=== PATIENT | female | born 1960 | race Caucasian/White ===

== ENCOUNTER 2017-04-20 21:28 | Emergency (ER) | payer OTHER, BC ==
[~2017-04-20] VITALS: Ht 158.8 cm; Wt 59.1 kg
[~2017-04-20 21:28] MED LIST: ASPEC81 PO; ATOR-24 PO; CLOP1TAB5 PO; DIPH25CA65 PO; PARO10TA PO
[2017-04-20 21:40] VITALS: TEMP 36.8; Ht 158.8 cm; Wt 59.1 kg
[2017-04-20] MEDS ORDERED: ASPI81TA28 PO (21:56)
[2017-04-20] MEDS ORDERED: ACET-1256 PO (21:56)
[2017-04-20] MEDS ORDERED: LORAZEPAM 2 MG/ML 1 ML VIAL IV STA (22:01)
[2017-04-20] MEDS ORDERED: OPTIRAY 320 IV PRN (22:15)
[2017-04-20 22:44] LABS: BASO % 0.4 %; BASO ABS # 0.02 K/uL (0-0.2); EOS % 0.9 %; EOS ABS # 0.05 K/uL (0-0.5); HEMOGLOBIN 13.1 g/dL (12.0-16.0); IG# 0.01 K/uL (0.00-0.02); LYMPH % 26.5 %; MEAN CELL VOLUME 89.2 fL (80-100); MEAN CORPUSCULAR HGB CONC 33.6 g/dl (32-36); MEAN PLATELET VOLUME 9.6 fL (7.4-10.4); MONO % 7.4 %; MONO ABS # 0.39 K/uL (0.11-0.59); NEUT % 64.6 %; NEUT ABS # 3.42 K/uL (1.4-6.5); PLATELET COUNT 275 K/uL (130-400); RED CELL DISTRIBUTION WIDTH CV 12.9 % (11.5-14.5); RED CELL DISTRIBUTION WIDTH SD 42.1 fL (36.4-46.3); WHITE BLOOD COUNT 5.29 K/uL (4.8-10.8)
[2017-04-20 23:04] LABS: ALBUMIN 4.2 gm/dl (3.4-5.0); CALCIUM 9.5 mg/dl (8.5-10.1); CREATININE 0.87 mg/dl (0.60-1.20); POTASSIUM 3.9 mmol/L (3.5-5.1)
[2017-04-20 23:06] LABS: TOTAL PROTEIN 7.7 gm/dl (6.4-8.2)
[2017-04-21] MEDS ORDERED: ATIVAN 1MG HOMEPACK PO ONE (01:15)
[2017-04-21 01:23] VITALS: BP 109/56; PULSE 97; O2SAT 98
--- NOTE | 2017-04-21 06:44 | DIAGNOSTIC IMAGING REPORT ---
CT OF THE CERVICAL SPINE CLINICAL HISTORY: Left side neck pain after chiropractor adjustment. COMPARISON STUDY: Cervical spine MRI November 15, 2015. TECHNIQUE: Helical axial images of the cervical spine were obtained. Sagittal and coronal reconstructions were viewed. A dose lowering technique was utilized adhering to the principles of ALARA. FINDINGS: The patient is status post C5-C6 fusion. No acute cervical spine fracture is identified. The CTA of the neck will be reported separately. The craniocervical junction is intact. There is moderate multilevel disc space narrowing with osteophytosis and mild multilevel facet arthrosis. Multiple tonsilliths are noted. In addition, there is a 1.2 cm cystic lesion within the right palatine tonsils which is similar to MRI of November 15, 2015. This likely has minimal peripheral enhancement. IMPRESSION: 1. No acute cervical spine fracture. 2. No change in an indeterminate 1.2 cm cystic lesion within the right palatine tonsils since MRI of November 15, 2015. Electronically signed by: Alphonse Valle M.D. 04/21/2017 6:43 AM Dictated Date/Time: 04/21/2017 6:37 AM
--- NOTE | 2017-04-21 06:48 | DIAGNOSTIC IMAGING REPORT ---
CT ANGIOGRAPHY OF THE NECK WITH CONTRAST CLINICAL HISTORY: LEFT NECK PAIN AFTER CHIROPRACTOR COMPARISON STUDY: Carotid ultrasound November 14, 2015. Technique: CT angiography of the carotid and vertebral arteries was obtained using BioDtech 320 IV and 3D reconstruction on an independent workstation. NASCET criteria was utilized. A dose lowering technique was utilized adhering to the principles of ALARA. CT DOSE: 416.72 mGy.cm Findings: No dissection is identified within the bilateral common carotid, internal carotid and vertebral arteries. These vessels are patent. The left vertebral artery is dominant. No significant stenosis is present. Lung apices are clear. A 1.2 cm peripherally enhancing cystic lesion within the right palatine tonsils is similar to MRI of November 15, 2015. There is no cervical lymphadenopathy. Postoperative findings within the sinuses are noted. There is no acute cervical spine fracture. IMPRESSION: No dissection or stenosis within the major vasculature of the neck. Electronically signed by: Alphonse Valle M.D. 04/21/2017 6:47 AM Dictated Date/Time: 04/21/2017 6:37 AM
--- NOTE | 2017-04-21 15:51 | EMERGENCY ROOM VISIT NOTE ---
History First contact with patient: 21:49 Chief Complaint: NECK PAIN Stated Complaint: SEVERE NECK PAIN History of Present Illness The patient is a 56 year old female who presents to the Emergency Room with complaints of severe left sided neck pain that is worsening over the past one day. The patient states that she has had some low back pain for the past several days, and went to a chiropractor. She states that she had her low back adjusted, as well as her neck. After going home she had severe worsening of her neck pain, again primarily on the left side. The patient is very anxious about her neck as she had a C5-C6 fusion about 20 years ago. She typically does not need medication for pain, but has been taking Tylenol without significant relief of symptoms. She does not have numbness down her left side. No distinct trauma. She is not describing lightheadedness, dizziness, vision changes, or other neurologic symptoms. She rates her current discomfort an 8/ 10. Review of Systems More than 10 systems were reviewed and otherwise negative with the exception of history of present illness. Past Medical/Surgical History Medical Problems: (1) No Known Active Medical Problems Surgical Problems: (1) History of back surgery Family History No pertinent family history Social History Smoking Status: Never Smoker Marital Status: Housing Status: lives with significant other Current/Historical Medications Scheduled Aspirin (Aspirin Ec), 81 MG PO DAILY Paroxetine Hcl (Paxil), 5 MG PO DAILY Scheduled PRN Acetaminophen (Tylenol), 1,000 MG PO Q6 PRN for Pain Physical Exam Vital Signs Date Time Temp Pulse Resp B/P (MAP) Pulse Ox O2 Delivery O2 Flow Rate FiO2 04/21/17 01:23 97 16 109/56 98 04/20/17 23:36 102 16 133/59 98 Room Air 04/20/17 21:40 36.8 108 18 158/82 100 Room Air Physical Exam VITALS: Vitals are noted on the nurse's note and reviewed by myself. Vital signs stable. GENERAL: Well-developed, well-nourished, white female who appears significantly anxious. She is crying at times throughout the interview. Patient is cooperative with the examination. HEAD: Normocephalic atraumatic. NECK: Supple without nuchal rigidity. No lymphadenopathy. No thyromegaly. Cervical spine is nontender. No meningeal this. HEART: Regular rate and rhythm without murmurs gallops or rubs. LUNGS: Clear to auscultation bilaterally without wheezes, rales or rhonchi. No retractions or accessory muscle use. MUSCULOSKELETAL: No muscle atrophy, erythema, or edema noted. Full range of motion without joint tenderness in all extremities. NEURO: Patient was alert and oriented to person place and time. CN II through XII grossly intact. No focal neurological deficits. Deep tendon reflexes 2+ throughout. Medical Decision & Procedures ER Provider Diagnostic Interpretation: CT OF THE CERVICAL SPINE CLINICAL HISTORY: Left side neck pain after chiropractor adjustment. COMPARISON STUDY: Cervical spine MRI November 15, 2015. TECHNIQUE: Helical axial images of the cervical spine were obtained. Sagittal and coronal reconstructions were viewed. A dose lowering technique was utilized adhering to the principles of ALARA. FINDINGS: The patient is status post C5-C6 fusion. No acute cervical spine fracture is identified. The CTA of the neck will be reported separately. The craniocervical junction is intact. There is moderate multilevel disc space narrowing with osteophytosis and mild multilevel facet arthrosis. Multiple tonsilliths are noted. In addition, there is a 1.2 cm cystic lesion within the right palatine tonsils which is similar to MRI of November 15, 2015. This likely has minimal peripheral enhancement. IMPRESSION: 1. No acute cervical spine fracture. 2. No change in an indeterminate 1.2 cm cystic lesion within the right palatine tonsils since MRI of November 15, 2015. CT ANGIOGRAPHY OF THE NECK WITH CONTRAST CLINICAL HISTORY: LEFT NECK PAIN AFTER CHIROPRACTOR COMPARISON STUDY: Carotid ultrasound November 14, 2015. Technique: CT angiography of the carotid and vertebral arteries was obtained using Optiray 320 IV and 3D reconstruction on an independent workstation. NASCET criteria was utilized. A dose lowering technique was utilized adhering to the principles of ALARA. CT DOSE: 416.72 mGy.cm Findings: No dissection is identified within the bilateral common carotid, internal carotid and vertebral arteries. These vessels are patent. The left vertebral artery is dominant. No significant stenosis is present. Lung apices are clear. A 1.2 cm peripherally enhancing cystic lesion within the right palatine tonsils is similar to MRI of November 15, 2015. There is no cervical lymphadenopathy. Postoperative findings within the sinuses are noted. There is no acute cervical spine fracture. IMPRESSION: No dissection or stenosis within the major vasculature of the neck. Laboratory Results 04/20/17 22:23 Red Blood Count 4.37, Mean Corpuscular Volume 89.2, Mean Corpuscular Hemoglobin 30.0, Mean Corpuscular Hemoglobin Concent 33.6, Mean Platelet Volume 9.6, Neutrophils (%) (Auto) 64.6, Lymphocytes (%) (Auto) 26.5, Monocytes (%) (Auto) 7.4, Eosinophils (%) (Auto) 0.9, Basophils (%) (Auto) 0.4, Neutrophils # (Auto) 3.42, Lymphocytes # (Auto) 1.40, Monocytes # (Auto) 0.39, Eosinophils # (Auto) 0.05, Basophils # (Auto) 0.02 04/20/17 22:23 Test 04/20/17 22:23 White Blood Count 5.29 K/uL (4.8-10.8) Red Blood Count 4.37 M/uL (4.2-5.4) Hemoglobin 13.1 g/dL (12.0-16.0) Hematocrit 39.0 % (37-47) Mean Corpuscular Volume 89.2 fL (80-100) Mean Corpuscular Hemoglobin 30.0 pg (25-34) Mean Corpuscular Hemoglobin Concent 33.6 g/dl (32-36) Platelet Count 275 K/uL (130-400) Mean Platelet Volume 9.6 fL (7.4-10.4) Neutrophils (%) (Auto) 64.6 % Lymphocytes (%) (Auto) 26.5 % Monocytes (%) (Auto) 7.4 % Eosinophils (%) (Auto) 0.9 % Basophils (%) (Auto) 0.4 % Neutrophils # (Auto) 3.42 K/uL (1.4-6.5) Lymphocytes # (Auto) 1.40 K/uL (1.2-3.4) Monocytes # (Auto) 0.39 K/uL (0.11-0.59) Eosinophils # (Auto) 0.05 K/uL (0-0.5) Basophils # (Auto) 0.02 K/uL (0-0.2) RDW Standard Deviation 42.1 fL (36.4-46.3) RDW Coefficient of Variation 12.9 % (11.5-14.5) Immature Granulocyte % (Auto) 0.2 % Immature Granulocyte # (Auto) 0.01 K/uL (0.00-0.02) Anion Gap 5.0 mmol/L (3-11) Est Creatinine Clear Calc Drug Dose 58.5 ml/min Estimated GFR () 86.3 Estimated GFR (Non- 74.5 BUN/Creatinine Ratio 24.7 (10-20) Calcium Level 9.5 mg/dl (8.5-10.1) Total Bilirubin 0.2 mg/dl (0.2-1) Aspartate Amino Transf (AST/SGOT) 13 U/L (15-37) Alanine Aminotransferase (ALT/SGPT) 21 U/L (12-78) Alkaline Phosphatase 60 U/L (45-117) Total Protein 7.7 gm/dl (6.4-8.2) Albumin 4.2 gm/dl (3.4-5.0) Globulin 3.5 gm/dl (2.5-4.0) Albumin/Globulin Ratio 1.2 (0.9-2) Medications Administered Medications (Trade) Dose Ordered Sig/Carmina Route Start Time Stop Time Status Last Admin Dose Admin Lorazepam (Ativan Inj) 1 mg NOW STAT IV 04/20/17 22:01 04/20/17 22:04 DC 04/20/17 22:19 1 MG Lorazepam (Ativan 1MG Home Pack) 1 homepack UD ONCE PO 04/21/17 01:15 04/21/17 01:16 DC 04/21/17 01:15 1 HOMEPACK ED Course Physical exam and history were performed. Nursing notes, EMR, and Medication List were personally reviewed. Patient appears to have severe left-sided neck pain after going to the chiropractor this week. The patient is very anxious on examination. IV access was established and basic labs were obtained. The patient was given a dose of IV Ativan. She did not wish for pain medication at this time, although this was offered. The patient's blood work is as above and was reviewed. She does not have a significantly elevated white blood cell count, gross anemia, bandemia, or significant electrolyte imbalance. CT scan of the neck is without fracture. CT angiogram does not reveal dissection or other acute etiology for her symptoms. It does show an atypical finding in her tonsil, and a patient reports a past medical history of a mucoid cyst that is followed by ENT. This is evidently not new for her. Overall the patient appears well for discharge home. She had significant improvement of her symptoms after the Ativan and reassurance following CT scans. The patient will be given a home pack of Ativan and instructed to follow with her primary care physician in the next few days for recheck. She was otherwise invited back to the ER with any new, worsening, or concerning symptoms. The chart was completed utilizing [employer] Speech Voice Recognition Software. Grammatical errors, random word insertions, pronoun errors, and incomplete sentences are an occasional consequence of this system due to software limitations, ambient noise, and hardware issues. Any formal questions or concerns about the content, text, or information contained within the body of this dictation should be directly addressed to the provider for clarification. . Medical Decision The differential diagnosis includes, but is not limited to: Musculoskeletal pain , chronic neck pain, vertebral artery dissection, hardware malfunction, encephalitis, mass or mass effect, sinusitis, infection, tumor, and others Impression Primary Impression: Neck pain on left side Additional Impression: Mucous cyst of tonsil Departure Information Dispostion Home / Self-Care Condition GOOD Referrals Glo Drummond M.D. Forms HOME CARE DOCUMENTATION FORM, IMPORTANT VISIT INFORMATION Patient Instructions My [facility] Additional Instructions You were seen and evaluated today on an emergency basis only. This is not a substitute for, or an effort to provide, complete comprehensive medical care. It is not possible to recognize and treat all injuries or illnesses in a single emergency department visit. For this reason it is recommended that you followup with your primary care physician with any ongoing or persistent symptoms. You may take Ativan 1 mg 8 hours as needed Continue at home medications Follow with Dr. Drummond, GLORIA, for your tonsil You are welcome to return to the emergency department anytime with new, worsening, or concerning symptoms. Problem Qualifiers
== END 2017-04-21 01:25 | disposition home or self-care (01) ==
LOC: C.EDB 21:29 → C.EDD 04-21 01:25
DX: M54.2 Cervicalgia (principal); J35.8 Other chronic diseases of tonsils and adenoids; Z79.82 Long term (current) use of aspirin; Z79.899 Other long term (current) drug therapy

== ENCOUNTER 2017-05-25 05:31 | Day surgery (SDC) | payer OTHER, BC ==
[2017-05-21 08:08] VITALS: BMI 22.0
--- NOTE | 2017-05-21 08:43 | PAT Medication Instructions ---
Service Date May 21, 2017. Current Home Medication List Acetaminophen (Tylenol), 1,000 MG PO Q6 PRN for Pain Aspirin (Aspirin Ec), 81 MG PO QAM Diphenhydramine Hcl (Benadryl Allergy), 1 CAP PO HS Lorazepam (Ativan), Unknown Dose PO UD PRN for prn Mupirocin Calcium (Topical) (Mupirocin), 1 DOSE TOP UD Paroxetine Hcl (Paxil), 10 MG PO HS Medication Instructions For Your Scheduled Surgery -Contact your surgeon for instructions for: Aspirin (Aspirin Ec), 81 MG PO QAM - Hold the following medications 24 hours prior to surgery: Mupirocin Calcium (Topical) (Mupirocin), 1 DOSE TOP UD - Take the following medications the morning of surgery with a sip of water: Acetaminophen (Tylenol), 1,000 MG PO Q6 PRN for Pain (if needed, can be taken up to four hours before surgery) Lorazepam (Ativan), Unknown Dose PO UD PRN for prn (if needed) - Take the following medications as scheduled the night before surgery: Acetaminophen (Tylenol), 1,000 MG PO Q6 PRN for Pain (if needed) Diphenhydramine Hcl (Benadryl Allergy), 1 CAP PO HS Lorazepam (Ativan), Unknown Dose PO UD PRN for prn (if needed) Paroxetine Hcl (Paxil), 10 MG PO HS If you have any questions please call us at [phone] or [phone] or [phone]
--- NOTE | 2017-05-24 16:50 | History and Physical ---
History & Physical Date May 24, 2017. Chief Complaint cyst above right tonsil History of Present Illness The patient is a 56 year old female with complaints of chronic tonsillitis, cyst noted on CT of spine above right tonsil Past Medical/Surgical History Medical Problems: (1) No Known Active Medical Problems Surgical Problems: (1) History of back surgery Additional History Hepatic Disease: No Endocrine Disorder: No Kidney Disease: No Hypertension: No Heart Disease: No Bleeding Tendencies: No Infectious Diseases: No Allergies Coded Allergies: Sulfa Antibiotics (Verified Allergy, Severe, CHAVES, BLISTERS ON SKIN, 05/21/17 ) Sertraline (Verified Allergy, Mild, Rash, 05/21/17) Home Medications Scheduled Aspirin (Aspirin Ec), 81 MG PO QAM Diphenhydramine Hcl (Benadryl Allergy), 1 CAP PO HS Mupirocin Calcium (Topical) (Mupirocin), 1 DOSE TOP UD Paroxetine Hcl (Paxil), 10 MG PO HS Scheduled PRN Acetaminophen (Tylenol), 1,000 MG PO Q6 PRN for Pain Lorazepam (Ativan), Unknown Dose PO UD PRN for prn Physical Examination Skin: warm/dry, no rash Eyes: normal inspection, EOMI, sclerae normal ENT: normal ENT inspection, pharynx normal Head: normocephalic, atraumatic Neck: supple, no adenopathy, trachea midline Respiratory/Chest: lungs clear, normal breath sounds, no respiratory distress Cardiovascular: regular rate, rhythm, no edema, no murmur Abdomen / GI: normal bowel sounds, non tender Back: normal inspection Extremities: normal inspection, normal range of motion Neurologic/Psych: no motor/sensory deficits, alert, normal reflexes, oriented x 3 Diagnosis chronic tonsillitis, cyst above right tonsil Plan of Treatment tonsillectomy, excision pharyngeal cyst
[~2017-05-25] VITALS: Ht 160 cm; Wt 57.3 kg
[~2017-05-25 05:31] MED LIST changes: +ACET-1256 PO; -ASPEC81 PO; +ASPI81TA28 PO; -ATOR-24 PO; -CLOP1TAB5 PO; +LORA-741 PO; +MUPI1CRE TOP
[2017-05-25 05:50] VITALS: BP 151/72; PULSE 106; TEMP 36.7; O2SAT 97; Ht 160 cm; Wt 57.3 kg
[2017-05-25] MEDS ORDERED: CEFAZOLIN SOD 1000MG/7.5 ML IV PUSH IV SCH (06:00)
[2017-05-25] MEDS ORDERED: LACTATED RINGER'S 1000ML 1,000 ML IV SCH (06:00)
[2017-05-25] MEDS ORDERED: FENTANYL CITRATE INJ 50 MCG/1 ML 2 ML VIAL ONE ×2 (06:54→08:45)
[2017-05-25] MEDS ORDERED: PROPOFOL IV EMULSION 10 MG/ML 20 ML VIAL IV ONE (06:54)
[2017-05-25] MEDS ORDERED: LIDOCAINE HCL 2% 2 ML VIAL (20MG/ML) ONE (06:54)
[2017-05-25] MEDS ORDERED: NEOSTIGMINE METHYLSULFATE 5 MG/5 ML SYR ONE (06:54)
[2017-05-25] MEDS ORDERED: ONDANSETRON INJ 2 MG/ML 2 ML VIAL ONE ×2 (06:54→07:42)
[2017-05-25] MEDS ORDERED: GLYCOPYRROLATE INJ 0.2 MG/ML VIAL ONE ×2 (06:54→07:42)
[2017-05-25] MEDS ORDERED: DEXAMETHASONE SOD INJ 4 MG/ML VIAL ONE (06:54)
[2017-05-25] MEDS ORDERED: MIDAZOLAM HCL 1 MG/ML 2ML VIAL ONE (06:54)
[2017-05-25] MEDS ORDERED: BUPIVACAINE/EPINEPHRINE 0.5% MPF 1:200,000 30 ML VIAL ONE (07:15)
--- NOTE | 2017-05-25 07:16 | History & Physical Bridge Note ---
H&P Re-Evaluation Bridge Note: I have examined the patient, reviewed the History & Physical and in the interval since the performance of the History & Physical I have noted the following changes of clinical significance:Right side tonsillectomy/excision cyst. No changes noted
[2017-05-25] MEDS ORDERED: CEFAZOLIN SOD 1000MG/7.5 ML IV PUSH IV ONE (07:18)
[2017-05-25] MEDS ORDERED: PHENYLEPHRINE 100MCG/ML 5ML SYR ONE (07:36)
[2017-05-25] MEDS ORDERED: LARYING-O-JET KIT (LTA) ONE (07:36)
[2017-05-25] MEDS ORDERED: ROCURONIUM BROMIDE 10 MG/ML 5 ML VIAL IV ONE (07:42)
[2017-05-25] MEDS ORDERED: SODIUM CHLORIDE 0.9% 1000ML 1,000 ML IV SCH (07:55)
--- NOTE | 2017-05-25 07:56 | [facility] Post Operative Brief Note ---
Immediate Operative Summary Operative Date May 25, 2017. Pre-Operative Diagnosis Chronic Tonsillitis, Right Parapharyngeal Cyst Post-Operative Diagnosis Chronic Tonsillitis, Right Parapharyngeal Cyst Procedure(s) Performed Right Tonsillectomy, Excision Right Parapharyngeal Cyst Surgeon Dr. Drummond Leather Belt Shaper Surgeon(s) none Estimated Blood Loss 5ml Findings Consistent with Post-Op Diagnosis Specimens A.) Right Tonsil B.) Right Parapharyngeal portion of cyst wall Drains None Anesthesia Type General Complication(s) none Disposition Accompanied Pt To Recovery: yes Disposition: Recovery Room / PACU
[2017-05-25] MEDS ORDERED: ACETAMINOPHEN/HYDROCODONE ELIX 15 ML/CUP UDP PO PRN (08:00)
[2017-05-25] MEDS ORDERED: HYDR1SOL10 PO (08:00)
[2017-05-25] MEDS ORDERED: TRAM-10 PO (08:00)
[2017-05-25] MEDS ORDERED: ONDANSETRON INJ 2 MG/ML 2 ML VIAL IV PRN ×2 (08:00→08:15)
--- NOTE | 2017-05-25 08:01 | Discharge Instructions-SurgCtr ---
Discharge Instructions Date of Service May 25, 2017. Visit Reason for Visit: Right Amanda-Tonsillar Lesion Discharge Discharge Diagnosis / Problem: same Discharge Goals Goal(s): Diagnostic testing Activity Recommendations Activity Limitations: per Instructions/Follow-up section Anesthesia . Post Anesthesia Instructions: If you have had General Anesthesia or IV Sedation: * Do not drive today. * Resume driving when surgeon permits. * Do not make important decisions or sign legal documents today. * Call surgeon for: 1. Temperature elevations greater than 101 degrees F. 2. Uncontrollable pain. 3. Excessive bleeding. 4. Persistent nausea and vomiting. 5. Medication intolerance (nausea, vomiting or rash). * For nausea and vomiting use only clear liquids such as: tea, soda, bouillon until nausea subsides, then gradually increase diet as tolerated. * If you have any concerns or questions, call your surgeon's office. If physician is unavailable and it is an emergency, call 911 or go to the nearest emergency room. . Instructions / Follow-Up Instructions / Follow-Up ACTIVITY RECOMMENDATIONS: * During the first few days, activities should be limited. * Stay indoors for several days. * After 48 hours, activity can gradually be increased to normal activity. RETURN TO SCHOOL/WORK: * Return to school or work in one week. * No physical education for two weeks. OVER THE COUNTER MEDICATIONS: * You may use Tylenol * Avoid aspirin or aspirin containing products, e.g. as they may increase bleeding. SPECIAL CARE INSTRUCTIONS: * Avoid coughing or clearing the throat. * Do not use a straw. * A sore throat is expected frequently accompanied by pain radiating to the ears. This is normal. * Expect bad breath until "scabs" are healed. * Notify the doctor if bleeding occurs, vomiting, temperature greater than 101 degrees Fahrenheit. Call or cell phone: . * If bleeding occurs, it is usually in the first 24 hours or after the 5th day. If unable to reach the doctor, go to the nearest Emergency Department. Special Diet: * Fluids are very important and should be encouraged to maintain adequate hydration. * To maintain nutrition, eat soft foods and after 48 hours the consistency of foods can be increased. Examples are jello, soup, pasta, ice cream and mashed foods. FOLLOW UP VISIT: Follow-up visit with Dr. Drummond in 2 weeks. Please call to schedule if not already scheduled. Diet Recommendations Home Diet: special diet Diet Texture: Mechanical Soft (ground) Procedures Procedures Performed: Right Tonsillectomy, Excision Right Parapharyngeal Cyst Pending Studies Studies pending at discharge: yes List of pending studies: pathology Medical Emergencies . Who to Call and When: Medical Emergencies: If at any time you feel your situation is an emergency, please call 911 immediately. . Non-Emergent Contact Non-Emergency issues call your: Primary Care Provider . . "Provider Documentation" section prepared by Glo Drummond. . [place] Drug Monitoring Program Search Results: no issues identified
--- NOTE | 2017-05-25 08:14 | [facility] Operative Report ---
Operative Report Operative Date May 25, 2017. Pre-Operative Diagnosis Chronic Tonsillitis, Right Parapharyngeal Cyst Post-Operative Diagnosis Chronic Tonsillitis, Right Parapharyngeal Cyst Procedure(s) Performed Right Tonsillectomy, Excision Right Parapharyngeal Cyst Surgeon Dr. Drummond Food Checker Surgeon(s) none Estimated Blood Loss 5ml Findings 1.5 cm cyst superior and lateral to right tonsil Specimens A.) Right Tonsil B.) Right Parapharyngeal portion of cyst wall Drains None Anesthesia Type General Complication(s) none Disposition yes Recovery Room / PACU Indications 56-year-old female with persistent cyst on MRI and on CT scan in the right parapharyngeal space over the last 3 years Description of Procedure The patient was brought to the operating room and placed in the supine position and general endotracheal anesthesia was induced and she was prepped and draped in the usual sterile manner. The mouthgag was placed in the right peritonsillar area was injected with 0.5% Sensorcaine with 1-200,000 strength epinephrine. The right tonsillectomy was performed using the Coblation device. Excision of the anterior wall of the cyst superior and lateral to the tonsil was performed using the #12 blade and the Metzenbaum scissors taking the anterior cyst wall as biopsy specimen. The posterior portion of the cyst wall was left open connecting to the tonsillar fossa. Hemostasis was controlled using the Coblation device. The pharynx was irrigated clean with saline and the patient was taken to recovery area in satisfactory condition. I attest to the content of the Intraoperative Record and any orders documented therein. Any exceptions are noted below.
[2017-05-25] MEDS ORDERED: HYDROmorphone INJ 1 MG/ML SYR IV PRN (08:15)
[2017-05-25] MEDS ORDERED: LABETALOL HCL IV 5 MG/ML 20ML IV PRN (08:15)
[2017-05-25] MEDS ORDERED: FENTANYL CITRATE INJ 50 MCG/1 ML 2 ML VIAL IV PRN (08:15)
[2017-05-25] MEDS ORDERED: EpHEDrine SULFATE INJ 50 MG/ML AMP IV PRN (08:15)
[2017-05-25] MEDS ORDERED: ATROPINE SULFATE 0.1 MG/ML 5ML SYR IV PRN (08:15)
[2017-05-25] MEDS ORDERED: MEPERIDINE HCL 25 MG/ML CARP IV PRN (08:15)
[2017-05-25] MEDS ORDERED: LABETALOL HCL IV 5 MG/ML 20ML IV ONE (08:49)
--- NOTE | 2017-05-25 09:23 | Anesthesiology Progress Note ---
Anesthesia Post Op Note Date & Time May 25, 2017 at 09:23 Vital Signs Pain Intensity: 4.0 Vital Signs Past 12 Hours Date Time Temp Pulse Resp B/P (MAP) Pulse Ox O2 Delivery O2 Flow Rate FiO2 05/25/17 08:30 86 19 154/75 97 Room Air 05/25/17 08:20 83 16 153/78 100 Oxymask 10 05/25/17 08:10 36.3 84 16 153/86 100 Oxymask 10 05/25/17 05:50 36.7 106 18 151/72 (98) 97 Room Air Notes Mental Status: alert / awake / arousable, participated in evaluation Pt Amnestic to Procedure: Yes Nausea / Vomiting: adequately controlled Pain: adequately controlled Airway Patency, RR, SpO2: stable & adequate BP & HR: stable & adequate Hydration State: stable & adequate Anesthetic Complications: no major complications apparent
[2017-05-25 09:55] VITALS: BP 146/84; PULSE 82; TEMP 37; O2SAT 96
[2017-05-25 10:25] VITALS: BP 154/70; PULSE 78; TEMP 37; O2SAT 96
[2017-05-25] MEDS ORDERED: NURSING VERBAL MED ORDER ONE (11:15)
== END 2017-05-25 10:55 | disposition home or self-care (01) ==
LOC: C.ACU 05:31
PROVIDERS: ATTEND Otolaryngology
DX: J03.90 Acute tonsillitis, unspecified (principal); J35.8 Other chronic diseases of tonsils and adenoids; F32.9 Major depressive disorder, single episode, unspecified; Z86.73 Personal history of transient ischemic attack (TIA), and cerebral infarction without residual deficits; Z88.2 Allergy status to sulfonamides; Z88.8 Allergy status to other drugs, medicaments and biological substances; Z79.82 Long term (current) use of aspirin